=== PATIENT | female | born 1960 | race Caucasian/White ===

== ENCOUNTER 2017-04-03 14:50 | Inpatient (IN) ==
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
[2017-04-03 15:56] LABS: Basophils % 0.2 %; Eosinophils % 0.3 %; Hematocrit 38.1 % (35.3-44.9); Hemoglobin 12.7 g/dL (11.5-15.4); Immature Granulocytes % 0.4 % (0-4); Lymphocytes # 2.1 K/mcL (0.6-4.6); Lymphocytes % 23.7 %; Mean Corpuscular HGB Conc 33.3 g/dL (31.6-35.5); Mean Corpuscular Hemoglobin 29.1 pg (28.0-33.3); Mean Corpuscular Volume 87.2 fL (83.0-100.0); Mean Platelet Volume 8.3 fL (9.4-12.4); Monocytes # 0.8 K/mcL (0.0-1.3); Monocytes % 8.5 %; Platelet Count 295 K/mcL (140-400); Red Blood Count 4.37 M/mcL (3.82-4.97); Red Cell Distribution Width 12.6 % (11.5-14.5); Segmented Neutrophils % 66.9 %
[2017-04-03 16:02] LABS: Prothrombin Time 11.1 Seconds (9.4-12.1)
[2017-04-03 16:05] LABS: Activated Partial Thrombo Time 30.4 Seconds (26.0-36.0)
[2017-04-03 16:10] LABS: Alanine Aminotransferase 34 Units/L (0-55); Albumin 3.9 g/dL (3.5-5.0); Albumin/Globulin Ratio 1.2 (1.1-2.2); Alkaline Phosphatase 58 Units/L (38-126); Aspartate Amino Transferase 34 Units/L (5-34); BUN/Creatinine Ratio 12 (6-26); Bilirubin,Direct 0.1 mg/dL (0.0-0.5); Bilirubin,Indirect 0.2 mg/dL (0.0-1.2); Bilirubin,Total 0.3 mg/dL (0.2-1.2); Blood Urea Nitrogen 10 mg/dL (7-20); Calcium 9.2 mg/dL (8.6-10.8); Carbon Dioxide 28 mEq/L (19-29); Chloride 104 mEq/L (98-109); Globulin 3.3 g/dL (2.4-3.5); Glucose 111 mg/dL (70-99); Osmolality,Calculated 284 (280-300); Potassium 3.7 mEq/L (3.5-4.5); Sodium 137 mEq/L (136-145); Total Protein 7.2 g/dL (6.0-8.3); eGFR For African Americans > 60 (> 60); eGFR For Non-African Americans > 60 (> 60)
[2017-04-03 16:11] LABS: Ethanol < 10 mg/dL (0-10)
[2017-04-03 16:36] LABS: Acetaminophen < 1.0 mcg/mL (10-30); Salicylate < 5.0 mg/dL (15-30); Thyroid Stimulating Hormone 1.895 mcIU/mL (0.350-4.840)
[2017-04-03 17:02] LABS: Bilirubin,Urine Negative (Negative); Blood,Urine Negative (Negative); Clarity,Urine Clear (Clear); Color,Urine Yellow (Yellow); Glucose,Urine (UA) Normal (Normal); Ketones,Urine Negative (Negative); Leukocyte Esterase,Urine Trace (Negative); Nitrite,Urine Negative (Negative); PH,Urine 6.5 pH Units (5.0-8.0); Protein,Urine Negative (Neg-Trace); Specific Gravity,Urine 1.009 (1.010-1.025); Urobilinogen,Urine Normal (Normal)
[2017-04-03 17:03] LABS: Bacteria,Urine None Seen per hpf (None-Few); Hyaline Casts,Urine None Seen per lpf (None-Few); RBC,Urine 0-3 per hpf (0-3); Squamous Epithelial Cell,Urine Moderate per lpf (None-Few); WBC,Urine 0-3 per hpf (0-3)
[2017-04-03 17:05] LABS: Amphetamine Screen,Urine Negative ng/mL (Cutoff=1000); Barbiturate Screen,Urine Negative ng/mL (Cutoff=200); Benzodiazepines Screen,Urine Negative ng/mL (Cutoff=200); Cannabinoid Screen,Urine Negative ng/mL (Cutoff = 50); Cocaine Screen,Urine Negative ng/mL (Cutoff= 300); Opiate Screen,Urine Negative ng/mL (Cutoff=300); Phencyclidine Screen,Urine Negative ng/mL (Cutoff=25)
--- NOTE | 2017-04-03 20:31 | Internal Med History&Physical ---
Date of Encounter: 04/03/17 Time of Encounter: 20:26 Assessment and Plan (1) Altered mental status Current visit: Yes Status: Acute Patient likely had a manic episode in setting of undiagnosed bipolar disorder type I She has been having highs and lows for a long time according to her , but denies any suicidal/homicidal thoughts Although klonopin is listed as home medication, she has only taken it on one occasion; therefore no reason to think withdrawal UDS, Head CT, TSH unremarkable; will obtain B12, folate for further metabolic workup Consult psychiatry, appreciate recommendations Qualifiers: Altered mental status type: unspecified Qualified Code(s): R41.82 - Altered mental status, unspecified (2) Anxiety Current visit: Yes Status: Chronic Will continue home Zoloft and Buspar Not currently taking any benzos (3) Hypertension Current visit: Yes Status: Chronic BP stable upon admission Will continue home anti-hypertensives Qualifiers: Hypertension type: essential hypertension Qualified Code(s): I10 - Essential (primary) hypertension (4) DVT prophylaxis Current visit: Yes Status: Acute Not indicated as she is ambulating and has low risk of DVT Internal Medicine - H&P: HPI Chief complaint: AMS Admitted From: Home Plans for Post Hospital Care: Home History of present illness: Ms. Marquez is a 56 year old female who presents to emergency department with altered mental status. She is accompanied by her , Naif and also her daughter, Mela, who are able to assist in history. The family member say that patient has confused for about 2 weeks. She apparently attended [employer] last Sunday and wandered off for about 36 hour period and only remembers bits of pieces of what happened. She did not answer her cell phone and did not try to contact her family during that time. She eventually called her sister and the patient's son met up with her today. Patient denies any suicidal or homicidal thoughts, but does admit to telling her family to "put the knives away" around her house. Family states that she spent $600 during this period including buying two identical purses, but she is normally financially responsible. believes that patient has several episodes of julia over the past 3 months but has never been formally diagnosed with bipolar disorder. She does have a history of anxiety and her psychiatrist recently increased her dose of Buspar a month ago. Family confirms that she does have periods of highs and lows. Patient denies any chest pain, shortness of breath, headache, nausea, vomiting, hearing voices in her head. Past Med Surg Social Fam HX - Past Medical History Medical history: hypertension Psychiatric history: anxiety - Past Surgical History Surgical History: cholecystectomy, hysterectomy - Social History Smoking Status: Unknown if ever smoked Smokeless Tobacco Status: No Alcohol use: none Drug use: none Internal Medicine - H&P: Meds Bisoprolol/HCTZ 2.5/6.25 [Ziac 2.5/6.25] 1 tab PO DAILY 04/03/17 [History] Buspirone HCl [Buspar] 30 mg PO BID 04/03/17 [History] Quinapril HCl [Accupril] 20 mg PO DAILY 04/03/17 [History] Sertraline [Zoloft] 200 mg PO DAILY 04/03/17 [History] clonazePAM [Klonopin] 0.5 mg PO BID PRN 04/03/17 [History] Allergies No Known Allergies Allergy (Verified 04/03/17 15:08) All Systems PM: A 10-system review of systems was performed and is negative for pertinent findings except as documented above in the HPI. - Constitutional Vitals: Temp Pulse Resp BP Pulse Ox 97.5 F L 57 16 153/78 99 04/03/17 15:09 04/03/17 16:48 04/03/17 18:19 04/03/17 18:19 04/03/17 16:48 Internal Med - H&P Results - Labs CBC & Chem 7: 04/03/17 15:48 04/03/17 15:48
[2017-04-03] MEDS ORDERED: Acetaminophen 325 MG TABLET PO PRN (20:40)
[2017-04-03] MEDS ORDERED: Ondansetron ODT 4 MG TAB.RAPDIS SL PRN (20:40)
[2017-04-03] MEDS ORDERED: Naloxone 0.4 MG/ML INJ IVP PRN (20:40)
[2017-04-04 06:52] LABS: Folate 12.2 ng/mL (7.0-31.4)
[2017-04-04] MEDS: Bisoprolol/HCTZ 2.5/6.25 TABLET PO SCH (08:18)
[2017-04-04] MEDS ORDERED: clonazePAM 0.5 MG TABLET PO PRN (09:21)
--- NOTE | 2017-04-04 10:34 | Neurology - Consult Note ---
Date of Encounter: 04/04/17 Time of Encounter: 10:30 Assessment and Plan (1) Altered mental status Current Visit: Yes Status: Acute Patient developed rather acute onset of mental status changes, with altered behaviors, without focal neurological deficits. Along with some recent findings of mood changes certainly new psychiatric mood disorder is likely. neurologically, what appears striking is significant speech difficulty, mainly in the form of expressive aphasia and inability to complete whole sentence and telling a story. This obviously needs further investigation to make sure there is no organic PIECE PRESSER pathology. The patient has no fever, no headache, no nuchal rigidity and no leucocytosis on CBC with differentials, urine drug screen negative. Will obtain MRI of brain and EEG to rule out PIECE PRESSER pathology, especially rare type of encephalitis, such as anti NMDA antibody encephalitis. But this does not appear to be infectious in etiology. Qualifiers: Altered mental status type: unspecified Qualified Code(s): R41.82 - Altered mental status, unspecified History of Present Illness Chief complaint: Confusion, behavioral changes and speech difficulty HPI: Ms. Marquez is a 56 year old female with PMH significant for HTN, cataracts, stomach ulcer who developed acute onset of behavioral changes, confusion, and speech difficulty. Patient is seen and she apparently is now having speech difficulty. Symptoms have been well documented in the H&P per medical team. Patient is currently wide awake and smiles when talking but clearly has speech difficulty, resembling expressive aphasia. No focal motor weakness. CT of head showed no acute intracranial abnormality. No fever, denies headache, no nuchal rigidity. Past Med Surg Social Fam HX - Past Medical History Medical history: hypertension Psychiatric history: anxiety - Past Surgical History Surgical History: cholecystectomy, hysterectomy - Social History Smoking Status: Unknown if ever smoked Smokeless Tobacco Status: No Alcohol use: none Drug use: none Medications and Allergies Bisoprolol/HCTZ 2.5/6.25 [Ziac 2.5/6.25] 1 tab PO DAILY 04/03/17 [History] Buspirone HCl [Buspar] 30 mg PO BID 04/03/17 [History] Quinapril HCl [Accupril] 20 mg PO DAILY 04/03/17 [History] Sertraline [Zoloft] 200 mg PO DAILY 04/03/17 [History] clonazePAM [Klonopin] 0.5 mg PO BID PRN 07/11/17 [History] Allergies No Known Allergies Allergy (Verified 04/03/17 15:08) All Systems: A 10-system review of systems was performed and is negative for pertinent findings except as documented above in the HPI. Physical Examination - Vital Signs Vital Signs: Initial Vital Signs Temp Pulse Resp BP Pulse Ox 97.5 F L 64 16 142/75 100 04/03/17 15:09 04/03/17 15:09 04/03/17 15:09 04/03/17 15:09 04/03/17 15:09 - Constitutional General appearance: comfortable - Neurologic Sensorimotor examination: other (Grossly intact) Detailed motor examination: full strength in all major muscle groups Motor examination - right side: 55: deltoids, biceps, triceps, wrist flexion, wrist extension, field staff, hip flexors, tibialis Anterior, quadriceps, toe extension (EHL), plantarflexion Motor examination - left side: 55: deltoids, biceps, triceps, wrist flexion, wrist extension, hip flexors, field staff, quadriceps, tibialis Anterior, toe extension (EHL), plantarflexion Detailed sensory examination: other (Grossly intact) Posture: other (NOne) Reflex and gait examination: intact Reflexes: Biceps: 2+, Triceps: 2+, Brachioradialis: 2+, Patella: 2+, Achilles: 2 + Mental Status Examination: awake, alert, oriented to person, oriented to place, follows commands appropriately, opens eyes to noxious stimulation, makes eye contact, follows simple commands, answers questions by nodding yes or no, expressive aphasia (Speech is abnormal, has difficulty completing a whole sentence) Cranial nerve examination: PERRL, EOMI, visual rivers intact, corneal reflexes brisk symmetrically, sensory to face intact, mastication intact, no facial asymmetry is present, no dysarthria (aphasic), hearing is intact symmetrically, soft palate elevates bilaterally upon phonation, gag reflex intact, flexes SCM and trapezius muscles symmetrically with full power, tongue protrudes midline, no atrophy or facial fasiculations present Results - Laboratory Findings CBC and BMP: 04/03/17 15:48 04/03/17 15:48 Abnormal lab findings: Abnormal lab results MPV 8.3 fL (9.4-12.4) L 04/03/17 15:48 Immature Plt Fraction 1.0 % (1.1-6.1) L 04/03/17 15:48 Glucose 111 mg/dL (70-99) H 04/03/17 15:48 Ur Specific [place] 1.009 (1.010-1.025) L 04/03/17 16:48 Ur Leukocyte Esterase Trace (Negative) H 04/03/17 16:48 Ur Squamous Epith Cells Moderate per lpf (None-Few) H 04/03/17 16:48 Ur Culture Indicated? YES (NO) A 04/03/17 16:48 Salicylates < 5.0 mg/dL (15-30) L 04/03/17 15:48 Acetaminophen < 1.0 mcg/mL (10-30) L 04/03/17 15:48 Consult Discharge Plan - Plan Referrals: NO,PCP [Primary Care Provider] -
--- NOTE | 2017-04-04 11:31 | Electrocardiograph Report ---
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
[2017-04-04] MEDS ORDERED: *HR* LORazepam 1 MG TABLET PO ONE (11:37)
--- NOTE | 2017-04-04 15:12 | Consult Note ---
Date of Encounter: 04/04/17 Time of Encounter: 15:03 Assessment & Recommendation (1) Altered mental status Current visit: Yes Status: Acute Assessment & Recommendation: Client has a very unusual presentation for Bipolar Disorder but it cannot be ruled out at this time. Family describes a history of subsyndromal Bipolar symptoms but nothing that really accounts for her current presentation. She takes mental health medications for anxiety. However, if she has a genuine Bipolar illness they are likely not very effective and may actually be precipitating more manic type symptoms. I am a little concerned about her word finding difficulty/expressive type aphasia. That is not consistent with Bipolar Disorder. Her family also describes a slow deterioration in her cognitive abilities over the last year and a half. It sounds like she was fired from her job for disorganization and memory problems. I would continue her medical work-up and follow-up on any recommendations from Neurology as a progressive dementia is certainly a possibility. If nothing turns up would recommend an inpatient psych admission to treat her for possible Bipolar illness with hopefully some resolution of her clinical picture. Qualifiers: Altered mental status type: unspecified Qualified Code(s): R41.82 - Altered mental status, unspecified History of Present Illness Requesting Physician: Jyoti Gomez MD Reason for consult: mental status change History of present illness: Ms. Marquez is a 56 year old female who was admitted secondary to a mental status change. According to her family she took off and no one knew where she was for a few days. According to her she has done this in the past when they have fought but that she has always returned home and maintained contact with her children while gone. This time she did not communicate with anyone. Family reported she made charges to the [employer] cards while gone which is unlike her. Family is questioning whether or not she might have Bipolar Disorder. They describe symptoms over the years that can be consistent with Bipolar Disorder but her presentation is not clear cut. Family describes periods of subsyndromal manic symptoms but no depressive episodes, no psychosis , and no mental health issues that have warranted hospitalization in the past. 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 She apparently was becoming more disorganized and forgetful at work. Highly anxious as well. Linked with an outpatient psychiatrist a little over a year ago secondary to anxiety. Treated with Zoloft and Buspar which she takes currently. Has never been managed for Bipolar Disorder. On exam she is not demonstrating any gloria manic or depressive symptoms at this time. She is demonstrating thought blocking/word finding difficulties similar to an expressive aphasia. However, medical work- up has been negative thus far. CC: Jyoti Gomez MD Past Med Surg Social Fam HX - Past Medical History Medical history: hypertension - Past Psychiatric History Psychiatric history: Reports: anxiety Family psychiatric history: No Family History of Suicide: None - Past Surgical History Surgical History: cholecystectomy, hysterectomy - Social History Smoking Status: Unknown if ever smoked Smokeless Tobacco Status: No Alcohol use: none Drug use: none Medications & Allergies Bisoprolol/HCTZ 2.5/6.25 [Ziac 2.5/6.25] 1 tab PO DAILY 04/03/17 [History] Buspirone HCl [Buspar] 30 mg PO BID 04/03/17 [History] Quinapril HCl [Accupril] 20 mg PO DAILY 04/03/17 [History] Sertraline [Zoloft] 200 mg PO DAILY 04/03/17 [History] clonazePAM [Klonopin] 0.5 mg PO BID PRN 04/03/17 [History] Allergies No Known Allergies Allergy (Verified 04/03/17 15:08) Review of Systems Constitutional: Denies: fever, chills, weakness, weight change Eyes: Denies: eye pain, vision change Ears, Nose, Throat: Denies: ear pain, throat pain, dental pain, hearing loss, congestion Cardiovascular: Denies: chest pain, palpitations, dyspnea on exertion Respiratory: Denies: cough, dyspnea, wheezes Gastrointestinal: Denies: abdominal pain, nausea, vomiting, diarrhea, constipation Genitourinary male: Denies: urgency, dysuria, frequency, genital lesions Genitourinary female: Denies: urgency, dysuria, frequency, abnormal menses, dyspareunia Musculoskeletal: Denies: joint swelling, joint pain Integumentary: Denies: rash, lesions, pruritus Neurological: Reports: confusion, memory loss Endocrine: Denies: fatigue, heat or cold intolerance Hematologic/Lymphatic: Denies: easy bruising, lymphadenopathy Allergic/Immunologic: Denies: urticaria, itchy eyes Mental Status Exam Patient orientation: Yes Person, Yes Place Level of alertness: Alert Patient appearance: Appropriate Behavior: calm Psychomotor activity: Normal Eye contact: Maintains Eye Contact Mood description: Anxious Affect description: congruent with mood Speech volume: Soft/Quiet Thought process: Thought Blocking Thought content: No Suicidal ideation, No Homicidal ideation, No Overt delusions Perceptual disturbances: No Reacting to internal stimuli Attention span: Unable to Focus, Unable to Sustain Attention Memory description: Immediate Impaired, Recent Impaired, Remote Impaired Patient reliability: Not Reliable Historian Intelligence estimate: Average Judgment: Limited Insight: Minimal Results - Vital Signs Vital signs: Temp Pulse Resp BP Pulse Ox 97.3 F L 52 12 184/84 99 04/04/17 06:39 04/04/17 06:39 04/04/17 06:39 04/04/17 06:39 04/04/17 06:39 - Labs Labs: Laboratory Last Values WBC 8.9 K/mcL (4.3-11.1) 04/03/17 15:48 RBC 4.37 M/mcL (3.82-4.97) 04/03/17 15:48 Hgb 12.7 g/dL (11.5-15.4) 04/03/17 15:48 Hct 38.1 % (35.3-44.9) 04/03/17 15:48 MCV 87.2 fL (83.0-100.0) 04/03/17 15:48 MCH 29.1 pg (28.0-33.3) 04/03/17 15:48 MCHC 33.3 g/dL (31.6-35.5) 04/03/17 15:48 RDW 12.6 % (11.5-14.5) 04/03/17 15:48 Plt Count 295 K/mcL (140-400) 04/03/17 15:48 MPV 8.3 fL (9.4-12.4) L 04/03/17 15:48 Immature Gran % 0.4 % (0-4) 04/03/17 15:48 Seg Neutrophils % 66.9 % 04/03/17 15:48 Lymphocytes % 23.7 % 04/03/17 15:48 Monocytes % 8.5 % 04/03/17 15:48 Eosinophils % 0.3 % 04/03/17 15:48 Basophils % 0.2 % 04/03/17 15:48 Neutrophils # 6.0 K/mcL (1.6-8.9) 04/03/17 15:48 Lymphocytes # 2.1 K/mcL (0.6-4.6) 04/03/17 15:48 Monocytes # 0.8 K/mcL (0.0-1.3) 04/03/17 15:48 Eosinophils # 0.0 K/mcL (0.0-0.6) 04/03/17 15:48 Basophils # 0.0 K/mcL (0.0-0.2) 04/03/17 15:48 Immature Plt Fraction 1.0 % (1.1-6.1) L 04/03/17 15:48 PT 11.1 Seconds (9.4-12.1) 04/03/17 15:48 INR 1.0 04/03/17 15:48 APTT 30.4 Seconds (26.0-36.0) 04/03/17 15:48 Sodium 137 mEq/L (136-145) 04/03/17 15:48 Potassium 3.7 mEq/L (3.5-4.5) 04/03/17 15:48 Chloride 104 mEq/L (98-109) 04/03/17 15:48 Carbon Dioxide 28 mEq/L (19-29) 04/03/17 15:48 BUN 10 mg/dL (7-20) 04/03/17 15:48 Creatinine 0.85 mg/dL (0.57-1.11) 04/03/17 15:48 Est GFR ( Amer) > 60 (> 60) 04/03/17 15:48 Est GFR (Non-Af Amer) > 60 (> 60) 04/03/17 15:48 BUN/Creatinine Ratio 12 (6-26) 04/03/17 15:48 Glucose 111 mg/dL (70-99) H 04/03/17 15:48 Calculated Osmolality 284 (280-300) 04/03/17 15:48 Calcium 9.2 mg/dL (8.6-10.8) 04/03/17 15:48 Total Bilirubin 0.3 mg/dL (0.2-1.2) 04/03/17 15:48 Direct Bilirubin 0.1 mg/dL (0.0-0.5) 04/03/17 15:48 Indirect Bilirubin 0.2 mg/dL (0.0-1.2) 04/03/17 15:48 AST 34 Units/L (5-34) 04/03/17 15:48 ALT 34 Units/L (0-55) 04/03/17 15:48 Alkaline Phosphatase 58 Units/L (38-126) 04/03/17 15:48 Troponin I 0.00 ng/mL (0-0.03) 04/03/17 15:48 Serum Total Protein 7.2 g/dL (6.0-8.3) 04/03/17 15:48 Albumin 3.9 g/dL (3.5-5.0) 04/03/17 15:48 Globulin 3.3 g/dL (2.4-3.5) 04/03/17 15:48 Albumin/Globulin Ratio 1.2 (1.1-2.2) 04/03/17 15:48 Vitamin B12 451 pg/mL (213-816) 04/04/17 05:00 Folate 12.2 ng/mL (7.0-31.4) 04/04/17 05:00 TSH 1.895 mcIU/mL (0.350-4.840) 04/03/17 15:48 Urine Color Yellow (Yellow) 04/03/17 16:48 Urine Clarity Clear (Clear) 04/03/17 16:48 Urine pH 6.5 pH Units (5.0-8.0) 04/03/17 16:48 Ur Specific [place] 1.009 (1.010-1.025) L 04/03/17 16:48 Urine Protein Negative mg/dL (Neg-Trace) 04/03/17 16:48 Urine Glucose (UA) Normal mg/dL (Normal) 04/03/17 16:48 Urine Ketones Negative mg/dL (Negative) 04/03/17 16:48 Urine Blood Negative (Negative) 04/03/17 16:48 Urine Nitrite Negative (Negative) 04/03/17 16:48 Urine Bilirubin Negative (Negative) 04/03/17 16:48 Urine Urobilinogen Normal mg/dL (Normal) 04/03/17 16:48 Ur Leukocyte Esterase Trace (Negative) H 04/03/17 16:48 Urine Microscopic RBC 0-3 per hpf (0-3) 04/03/17 16:48 Urine Microscopic WBC 0-3 per hpf (0-3) 04/03/17 16:48 Ur Squamous Epith Cells Moderate per lpf (None-Few) H 04/03/17 16:48 Urine Bacteria None Seen per hpf (None-Few) 04/03/17 16:48 Hyaline Casts None Seen per lpf (None-Few) 04/03/17 16:48 Ur Culture Indicated? YES (NO) A 04/03/17 16:48 Salicylates < 5.0 mg/dL (15-30) L 04/03/17 15:48 Urine Opiates Screen Negative ng/mL (Qajnuo=771) 04/03/17 16:51 Acetaminophen < 1.0 mcg/mL (10-30) L 04/03/17 15:48 Ur Barbiturates Screen Negative ng/mL (Gftyer=253) 04/03/17 16:51 Ur Phencyclidine Scrn Negative ng/mL (Cutoff=25) 04/03/17 16:51 Ur Amphetamines Screen Negative ng/mL (Gvzyoi=4105) 04/03/17 16:51 U Benzodiazepines Scrn Negative ng/mL (Okyrlq=613) 04/03/17 16:51 Urine Cocaine Screen Negative ng/mL (Cutoff= 300) 04/03/17 16:51 U Marijuana (THC) Screen Negative ng/mL (Cutoff = 50) 04/03/17 16:51 Ethyl Alcohol < 10 mg/dL (0-10) 04/03/17 15:48 - Impressions Impressions Brain MRI 04/04/17 09:22 IMPRESSION: Motion artifact degrades the images. Mild cerebral atrophy. No acute brain parenchymal abnormality. D/ / 04/04/2017 13:20:52 Sima Edward MD / Katalina San Interpreting Provider: Sima Edward MD Consult Discharge Plan - Plan Referrals: NO,PCP [Primary Care Provider] -
--- NOTE | 2017-04-04 17:16 | Internal Med Progress Note ---
Date of Encounter: 04/04/17 Time of Encounter: 11:00 - Assessment and plan (1) Altered mental status Current Visit: Yes Status: Acute Assessment and plan: her delirum / AMS mostly due to Bipolar however still need to r/o any organic cause agree with obtaining MRI of brain and EEG Neuro is on board Reviewed MRI results.. no acute changes Cont supportive and symptomatic care talked to the family at bed side and explained to them about current care Qualifiers: Altered mental status type: unspecified Qualified Code(s): R41.82 - Altered mental status, unspecified (2) Bipolar 1 disorder, manic, moderate Current Visit: Yes Status: Acute Assessment and plan: Her current maniac / mild psychotic behavior is due to her Bipolar problem may need to transfer to in Pt psych unit will talk to psychiatrist in AM mean while cont her home psych meds also cont clonopine (3) Anxiety Current Visit: Yes Status: Chronic Assessment and plan: cont BZD (4) Hypertension Current Visit: Yes Status: Chronic Assessment and plan: slightly elevated due to anxiety resumed all home meds inc Lisinopril to 20mg will use hydralazine 5mg IV PRN if her SBP > 160 constantly Qualifiers: Hypertension type: essential hypertension Qualified Code(s): I10 - Essential (primary) hypertension - Subjective Interval history: This is a 56 y/o F with known PMH of HTN and severe Bipolar who has been following psychiatrist Dr. Maryanne Lima actively, now she was broght into ER last nigh by family stating that from last 2 wees she is more confused with some short term memory loss and severe maniac episodes. When I examined the pt she was still maniac, and have flight of ideas ,however she is alert, awake and O x 3. Denied any CP / SOB - Constitutional Vitals: Temp Pulse Resp BP Pulse Ox 97.7 F 59 14 133/82 99 04/04/17 16:18 04/04/17 16:18 04/04/17 16:18 04/04/17 16:18 04/04/17 16:18 General appearance: Present: A&O X 3 - Respiratory Respiratory exam: Present: CTAB. Absent: accessory muscle use, rales, rhonchi, wheezes - Cardiovascular Cardiovascular exam: Present: RRR, +S1, +S2. Absent: diastolic murmur, gallop, rubs, systolic murmur - GI/Abdominal GI/Abdominal exam: Present: normal bowel sounds, soft, no peritoneal signs. Absent: distended, tenderness - Extremities Exam Extremities exam: Absent: pedal edema, tenderness - Neurological Exam Neurological exam: Present: CN II-XII intact, oriented X3, no focal deficits. Absent: pronater drift, facial droop, speech deficit - Psychiatric Psychiatric exam: Present: anxious, manic. Absent: suicidal ideation Additional comments: no hallucinations / delusions Internal Medicine: Result - Labs CBC & Chem 7: 04/03/17 15:48 04/03/17 15:48 - ABG Interpretation ABG results: PT/INR, D-dimer PT 11.1 Seconds (9.4-12.1) 04/03/17 15:48 - Impressions Impressions Brain MRI 04/04/17 09:22 IMPRESSION: Motion artifact degrades the images. Mild cerebral atrophy. No acute brain parenchymal abnormality. D/ / 04/04/2017 13:20:52 Sima Edward MD / Katalina San Interpreting Provider: Sima Edward MD Consult Discharge Plan - Plan Referrals: NO,PCP [Primary Care Provider] -
--- NOTE | 2017-04-04 21:19 | EEG/EMG/Oth Biometrics Report ---
EEG Procedure Report Date of procedure: 04/04/17 EEG Procedure: Routine EEG Procedure Note: History: This is a 56 year old woman who is undergoing an EEG to evaluate possible seizure disorder. Medication: no anticonvulsants listed. Report: This EEG was acquired with standard international 10-20 electrode placement system with EKG recording. The Background activity during this EEG was characterized by the presence of persistent stage 2 sleep, right from the beginning of the recording. Sleep stages were characterized by the presence of background fragmentation, vertex waves, K-complexes and sleep spindles. There are no electrographic seizures identified during this tracing. There are no epileptiform discharges and focal slowing noted during this recording. Photic stimulation produced no abnormalities. HV procedure not performed. EKG tracing showed no significant cardiac dysarrhythmia. Impression: This is a normal asleep EEG. Clinical Correlation: Normal EEGs, however, do not exclude epilepsy. Clinical correlation required.
[2017-04-05] MEDS: Lactobacillus 1 EACH CAP.SPRINK PO SCH ×3 (05:39→21:20)
[2017-04-05] MEDS: Amoxicillin 500 MG CAPSULE PO SCH ×4 (05:40→21:20)
[2017-04-05] MEDS: Bisoprolol/HCTZ 2.5/6.25 TABLET PO SCH (08:26)
--- NOTE | 2017-04-05 16:27 | Internal Med Progress Note ---
Date of Encounter: 04/05/17 Time of Encounter: 16:25 - Assessment and plan (1) Altered mental status Current Visit: Yes Status: Acute Assessment and plan: her delirum / AMS mostly due to Bipolar however still need to r/o any organic cause Reviewed MRI fo brin - no acute CVA Her EEG - did not show any active epileptic changes Neuro is on board Cont supportive and symptomatic care talked to the family at bed side and explained to them about current care Patient does need to stay in the hospital more than 2 midnights due to her complex medical problems. So we will change her to full admission today. I did review pt's PMH and PSH mentioned in HPI.. FH - reviewed ,no psych problmes in the family as per pt. Social : denied any smoking / alcohol / drugs. Reviewed all the medications and allergies. Also reviewed all the systems, everything is benign except the systems and symptoms I mentioned in HPI. Qualifiers: Altered mental status type: unspecified Qualified Code(s): R41.82 - Altered mental status, unspecified (2) Bipolar 1 disorder, manic, moderate Current Visit: Yes Status: Acute Assessment and plan: Her current maniac / mild psychotic behavior is due to her Bipolar problem She may need to transfer to in Pt psych unit apparently they do not have any beds available for today at our facility will talk to psychiatrist about further plan of care mean while cont her home psych meds also cont Klonopin (3) Anxiety Current Visit: Yes Status: Chronic Assessment and plan: cont BZD (4) Hypertension Current Visit: Yes Status: Chronic Assessment and plan: Stable with current regimen Qualifiers: Hypertension type: essential hypertension Qualified Code(s): I10 - Essential (primary) hypertension - Subjective Interval history: This is a 56 y/o F with known PMH of HTN and severe Bipolar who has been following psychiatrist Dr. Maryanne Lima actively, now she was broght into ER last nigh by family stating that from last 2 wees she is more confused with some short term memory loss and severe maniac episodes. When I examined the pt she was still maniac, and have flight of ideas ,however she is alert, awake and O x 3. But over all looks little better today. Did mention that she slept well last night. Denied any hallucinations and delusions. Denied any CP / SOB - Constitutional Vitals: Temp Pulse Resp BP Pulse Ox 97.9 F 58 18 115/71 99 04/05/17 15:41 04/05/17 15:41 04/05/17 15:41 04/05/17 15:41 04/05/17 15:41 General appearance: Present: A&O X 3 - Respiratory Respiratory exam: Present: CTAB. Absent: accessory muscle use, rales, rhonchi, wheezes - Cardiovascular Cardiovascular exam: Present: RRR, +S1, +S2. Absent: diastolic murmur, gallop, rubs, systolic murmur - GI/Abdominal GI/Abdominal exam: Present: normal bowel sounds, soft, no peritoneal signs. Absent: distended, tenderness - Neurological Exam Neurological exam: Present: alert, CN II-XII intact, oriented X3, reflexes normal, no focal deficits, strengths equal and symetr throughout. Absent: speech deficit - Psychiatric Psychiatric exam: Present: anxious, manic. Absent: suicidal ideation Internal Medicine: Result - Labs CBC & Chem 7: 04/03/17 15:48 04/03/17 15:48 - ABG Interpretation ABG results: PT/INR, D-dimer PT 11.1 Seconds (9.4-12.1) 04/03/17 15:48 Consult Discharge Plan - Plan Referrals: NO,PCP [Primary Care Provider] -
--- NOTE | 2017-04-05 19:00 | Neurology Progress Note ---
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 Neurologically, with normal MRI of brain, normal EEG the possibility of encephalitis, or subclinical partial epileptic status will be unlikely. One possibility of a neurological disorder that could be mimicking such presentation would be transient global amnesia, which usually occur in older than her patient population. TGA is usually a clinical diagnosis of exclusion and usually ran a course of less than 24 hours with good recovery. TGA is usually considered a benign phenomenon and usually do not require treatment. At this time, will recommend no further testing from neurology perspective. Will watch her overnight and see how she does. Qualifiers: Altered mental status type: unspecified Qualified Code(s): R41.82 - Altered mental status, unspecified Subjective Principal diagnosis: Altered mental status Interval history: Patient seen and examined. Patient completed EEG which showed normal asleep EEG with very organized stage II sleep rhythm. MRI of brain reviewed and returned essential normal study. Today the patient seems to be doing a lot better, in terms of her speech fluency and thought process. She is able to tell me quite complicated story and tried explain whether some of the events she has had in the past 3-4 years could be the stressors that could be leading to this. I hear no significant delusional thoughts at present time. Objective - Constitutional Vitals: Temp Pulse Resp BP Pulse Ox 97.9 F 58 18 115/71 99 04/05/17 15:41 04/05/17 15:41 04/05/17 15:41 04/05/17 15:41 04/05/17 15:41 - Neurological Exam Sensorimotor examination: Present: other (Grossly intact) Motor Examination: Present: full strength in all major muscle groups Motor examination - right side: 5/5: deltoids, biceps, triceps, wrist flexion, wrist extension, senior product development scientist, hip flexors, tibialis Anterior, quadriceps, toe extension (EHL), plantarflexion Motor examination - left side: 5/5: deltoids, biceps, triceps, wrist flexion, wrist extension, hip flexors, senior product development scientist, quadriceps, tibialis Anterior, toe extension (EHL), plantarflexion Sensation intact: Present: other (Grossly intact) Posture: Present: other (NOne) Reflex and gait examination: intact Reflexes: Biceps: 1+, Triceps: 1+, Brachioradialis: 1+, Patella: 1+, Achilles: 1 + Mental Status Examination: Present: awake, alert, oriented to person, oriented to place, follows commands appropriately, answers questions appropriately, no agnosia, no aphasia, no aproxia, opens eyes to noxious stimulation, makes eye contact, follows simple commands, answers questions by nodding yes or no Cranial nerve examination: Present: PERRL, EOMI, visual rivers intact, corneal reflexes brisk symmetrically, sensory to face intact, mastication intact, no facial asymmetry is present, no dysarthria, hearing is intact symmetrically, soft palate elevates bilaterally upon phonation, gag reflex intact, flexes SCM and trapezius muscles symmetrically with full power, tongue protrudes midline, no atrophy or facial fasiculations present Results - Laboratory Findings CBC and BMP: 04/03/17 15:48 04/03/17 15:48 Abnormal lab findings: Abnormal lab results MPV 8.3 fL (9.4-12.4) L 04/03/17 15:48 Immature Plt Fraction 1.0 % (1.1-6.1) L 04/03/17 15:48 Glucose 111 mg/dL (70-99) H 04/03/17 15:48 Ur Specific [place] 1.009 (1.010-1.025) L 04/03/17 16:48 Ur Leukocyte Esterase Trace (Negative) H 04/03/17 16:48 Ur Squamous Epith Cells Moderate per lpf (None-Few) H 04/03/17 16:48 Ur Culture Indicated? YES (NO) A 04/03/17 16:48 Salicylates < 5.0 mg/dL (15-30) L 04/03/17 15:48 Acetaminophen < 1.0 mcg/mL (10-30) L 04/03/17 15:48 Consult Discharge Plan - Plan Referrals: NO,PCP [Primary Care Provider] -
[2017-04-06] MEDS: Amoxicillin 500 MG CAPSULE PO SCH ×2 (05:07→14:12)
[2017-04-06] MEDS: Bisoprolol/HCTZ 2.5/6.25 TABLET PO SCH (09:02)
[2017-04-06] MEDS: Lactobacillus 1 EACH CAP.SPRINK PO SCH (09:02)
--- NOTE | 2017-04-06 09:06 | Discharge Summary ---
Date of Encounter: 04/06/17 Time of Encounter: 08:57 - Discharge Diagnosis (1) Altered mental status Priority: Primary Status: Acute Qualifiers: Altered mental status type: unspecified Qualified Code(s): R41.82 - Altered mental status, unspecified (2) Bipolar 1 disorder, manic, moderate Priority: Primary Status: Acute (3) Anxiety Priority: Secondary Status: Chronic (4) UTI (urinary tract infection), uncomplicated Priority: Secondary Status: Acute (5) Hypertension Priority: Secondary Status: Chronic Qualifiers: Hypertension type: essential hypertension Qualified Code(s): I10 - Essential (primary) hypertension - Discharge Medications Home Medications: Bisoprolol/HCTZ 2.5/6.25 [Ziac 2.5/6.25] 1 tab PO DAILY 04/03/17 [History] Buspirone HCl [Buspar] 30 mg PO BID 04/03/17 [History] Quinapril HCl [Accupril] 20 mg PO DAILY 04/03/17 [History] Sertraline [Zoloft] 200 mg PO DAILY 04/03/17 [History] clonazePAM [Klonopin] 0.5 mg PO BID PRN 04/03/17 [History] Acetaminophen [Tylenol] 650 mg PO Q6HR PRN tab 04/06/17 [Rx] Amoxicillin [Amoxil] 500 mg PO Q8H 3 Days 04/06/17 [Rx] Docusate [Colace] 100 mg PO BID PRN 04/06/17 [Rx] Allergies/Adverse Reactions: Allergies No Known Allergies Allergy (Verified 04/03/17 15:08) Date of admission: 04/05/17 16:39 Primary care physician: PCP NO Anticipated date of discharge: 04/06/17 - Patient Status Disposition: Transfer Psychiatric Hosp Condition: Fair - Discharge Instructions Follow Up With: NO,PCP [Primary Care Provider] - Hospital course: Ms. Marquez is a 56 y/o F with known PMH of HTN and severe Bipolar who has been following psychiatrist Dr. Maryanne Lima actively, now she was brought into ER last nigh by family stating that from last 2 wees she is more confused with some short term memory loss and severe maniac episodes. Pt was admitted in the hospital and continued close monitoring with neuro check and symptomatic care. Neurologist and psychiatrist did evaluated the pt too. Did MRI of Brain and EEG to r/o any rare encephalitis and organic cause. So far all the work up came back as negative. Pt was also continued on her regular psych medications along with Clonopin. Her symptoms started improving slowly. However she still has maniac episodes and flight of ideas, at this point psychiatrist Dr. Valiente agreed that she may get benefit with in patient psychiatric admission. Since pt is medically stable, will transfer her to in patient psych unit in a stable condition today. - Time Spent with Patient Total time spent providing and/or coordinating discharge services: - Constitutional Vitals: Temp Pulse Resp BP Pulse Ox 97.9 F 57 20 152/95 98 04/06/17 07:26 04/06/17 07:26 04/06/17 07:26 04/06/17 07:26 04/06/17 07:26 General appearance: Present: cooperative, A&O X 3, no acute distress - Respiratory Respiratory exam: Present: CTAB. Absent: accessory muscle use, rales, rhonchi, wheezes - Cardiovascular Cardiovascular exam: Present: RRR, +S1, +S2. Absent: diastolic murmur, gallop, rubs, systolic murmur - Neurological Exam Neurological exam: Present: CN II-XII intact, oriented X3, reflexes normal. Absent: facial droop, speech deficit - Psychiatric Psychiatric exam: Present: anxious, manic. Absent: suicidal ideation
[2017-04-06 10:32] VITALS: BP 125/85
== END 2017-04-06 14:52 | disposition home or self-care (01) | DRG 885 ==
LOC: EMEROO 14:50 → 3ANU 14:50
PROVIDERS: ADMIT Family Medicine; ATTEND Family Medicine

== ENCOUNTER 2017-04-06 15:03 | Inpatient (IN) ==
[2017-04-06] MEDS ORDERED: Haloperidol Lactate 5 MG/ML VIAL IM PRN (17:05)
[2017-04-06] MEDS ORDERED: *HR* LORazepam 2 MG/ML VIAL IM PRN (17:05)
[2017-04-06] MEDS ORDERED: MOM Conc 10 ML UD.LIQ PO PRN (17:05)
[2017-04-06] MEDS ORDERED: hydrOXYzine pamoate 25 MG CAPSULE PO PRN (17:05)
[2017-04-06] MEDS ORDERED: Mag Hydrox/Al Hydrox/Simeth 30 ML UDC PO PRN (17:05)
[2017-04-06] MEDS ORDERED: Ibuprofen 400 MG TABLET PO PRN (17:05)
[2017-04-06] MEDS ORDERED: *HR* LORazepam 1 MG TABLET PO PRN (17:05)
[2017-04-06] MEDS ORDERED: Acetaminophen 325 MG TABLET PO PRN (17:07)
[2017-04-06] MEDS ORDERED: clonazePAM 0.5 MG TABLET PO PRN (17:07)
[2017-04-06] MEDS ORDERED: traZODone 50 MG TABLET PO PRN (21:00)
[2017-04-06] MEDS: Amoxicillin 500 MG CAPSULE PO SCH (21:13)
[2017-04-07] MEDS: Amoxicillin 500 MG CAPSULE PO SCH ×3 (06:54→22:13)
[2017-04-07] MEDS: Bisoprolol/HCTZ 2.5/6.25 TABLET PO SCH (09:39)
[2017-04-07] MEDS: Lisinopril 20 MG TABLET PO SCH (09:39)
--- NOTE | 2017-04-07 11:14 | Psychiatry History & Physical ---
Date of Encounter: 04/07/17 Time of Encounter: 10:48 History of Present Illness Patient Stated Chief Complaint: altered mental status Medicare Admission Attestation: For traditional Medicare patients the provided hospital inpatient services are reasonable and necessary and in the case of services not specified as inpatient -only under 42 CFR 419.22 (n), that they are appropriately provided as inpatient services in accordance 42 CFR 412.3. For Critical Access Hospital the patient may reasonably be expected to be discharged or transferred to a hospital within 96 hours after admission to the Critical Access Hospital. Admitted From: Home Plans for Post Hospital Care: Home History of Present Illness: Ms. Marquez is a 56 year old female who was admitted to a medical floor after she disappeared for a couple of days and her family could not account for her whereabouts. Medical work-up negative for anything of concern. After talking with family it sounds like client may have demonstrated symptoms of Bipolar Disorder in the past but nothing that warranted inpatient hospitalization. However, there is also some concern for a possible dementia. 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 Client attributes these problems to anxiety. On exam she is pleasant but unable to organize her thoughts. She has thought blocking and tangentiality. She cannot get through a story. Digresses easily. Also easily tearful. Could be having a psychotic depression but it is too soon to tell. Already takes high dose Zoloft. Agreeable to adding low dose Risperdal. If her thinking clears then an accurate diagnosis may become more apparent. Past Med Surg Social Fam HX - Past Medical History Medical history: hypertension - Past Psychiatric History Psychiatric history: Reports: anxiety Family psychiatric history: Unknown Family History of Suicide: Unknown - Past Surgical History Surgical History: cholecystectomy, hysterectomy - Social History Smoking Status: Unknown if ever smoked Smokeless Tobacco Status: No Alcohol use: none Drug use: none Medications & Allergies Bisoprolol/HCTZ 2.5/6.25 [Ziac 2.5/6.25] 1 tab PO DAILY 04/03/17 [History] Buspirone HCl [Buspar] 30 mg PO BID 04/03/17 [History] Quinapril HCl [Accupril] 20 mg PO DAILY 04/03/17 [History] Sertraline [Zoloft] 200 mg PO DAILY 04/03/17 [History] clonazePAM [Klonopin] 0.5 mg PO BID PRN 04/03/17 [History] Acetaminophen [Tylenol] 650 mg PO Q6HR PRN tab 04/06/17 [Rx] Amoxicillin [Amoxil] 500 mg PO Q8H 3 Days 04/06/17 [Rx] Docusate [Colace] 100 mg PO BID PRN 04/06/17 [Rx] Allergies No Known Allergies Allergy (Verified 04/03/17 15:08) Review of Systems Constitutional: Denies: fever, chills, weakness, weight change Eyes: Denies: eye pain, vision change Ears, Nose, Throat: Denies: ear pain, throat pain, dental pain, hearing loss, congestion Cardiovascular: Denies: chest pain, palpitations, dyspnea on exertion Respiratory: Denies: cough, dyspnea, wheezes Gastrointestinal: Denies: abdominal pain, nausea, vomiting, diarrhea, constipation Genitourinary male: Denies: urgency, dysuria, frequency, genital lesions Genitourinary female: Denies: urgency, dysuria, frequency, abnormal menses, dyspareunia Musculoskeletal: Denies: joint swelling, joint pain Integumentary: Denies: rash, lesions, pruritus Neurological: Denies: headache, weakness, numbness, memory loss Endocrine: Denies: fatigue, heat or cold intolerance Hematologic/Lymphatic: Denies: easy bruising, lymphadenopathy Allergic/Immunologic: Denies: urticaria, itchy eyes Mental Status Exam Patient orientation: Yes Person, Yes Time, Yes Place Level of alertness: Alert Patient appearance: Appropriate, Well Groomed Behavior: anxious Psychomotor activity: Normal Eye contact: Maintains Eye Contact Mood description: Anxious Affect description: congruent with mood, tearful Speech pattern: Normal rate, Normal rhythm, Normal tone Speech volume: Soft/Quiet Thought process: Tangential, Disorganized Thought content: No Suicidal ideation, No Homicidal ideation, No Overt delusions Perceptual disturbances: No Auditory hallucinations, No Visual hallucinations Attention span: Capable of Focused Attention Memory description: Recent Impaired Patient reliability: Questionable Historian Intelligence estimate: Average Judgment: Fair Insight: Partial Exam - HEENT Head exam IM: Present: normal inspection Eye exam IM: Present: EOMI - Neurological Neurological exam IM: Present: alert, oriented X3 - Respiratory Respiratory exam IM: Present: CTAB - GI/Abdominal GI/Abdominal exam IM: Present: normal bowel sounds - Extremities Extremities exam IM: Present: full ROM - Skin Skin exam IM: Present: normal color Results - Vital Signs Vital signs: Temp Pulse Resp BP 98.3 F 63 14 132/71 04/06/17 21:00 04/06/17 21:00 04/06/17 21:00 04/06/17 21:00 Assessment and Plan (1) Altered mental status Current visit: No Status: Acute Plan: Admit inpatient for safety and stabilization, Close observation, Suicide Precautions per unit protocol, Encourage participation in unit milieu, Group Therapy, Monitor sleep, Monitor appetite Risks, benefits, side effects, alternatives discussed w/pt: Yes Patient agreeable to treatment: Yes Plans for Post Hospital Care: Home Estimated Length of Stay (Days): 4 Qualifiers: Altered mental status type: unspecified Qualified Code(s): R41.82 - Altered mental status, unspecified
[2017-04-07] MEDS: risperiDONE 0.25 MG TABLET PO SCH ×2 (11:15→21:21)
[2017-04-08] MEDS: Amoxicillin 500 MG CAPSULE PO SCH ×3 (06:36→21:05)
--- NOTE | 2017-04-08 08:05 | Psychiatry Progress Note ---
Date of Encounter: 04/08/17 Time of Encounter: 08:00 Subjective Interval history: Looks a little better. Thoughts are less scattered. Still some thought blocking but less so. Only prescribed Risperdal 0.5mg BID. Sensitive to medications so want to go slow but it seems like it is helping. Client reported she is taking an antibiotic for a UTI. Wondered how that may be effecting her thinking. Discussed how urinary tract infections can have a big impact on someone's clinical presentation. However, some of her issues are longstanding. 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 Current outpatient provider very far from her-reports she drives three hours to see him. Discussed speaking with hospital social worker in AM to try and arrange follow- up closer to home. Also asked her to have /family visit to provide feedback to staff about how she is doing. Review of Systems Constitutional: Denies: fever, chills, weakness, weight change Eyes: Denies: eye pain, vision change Ears, Nose, Throat: Denies: ear pain, throat pain, dental pain, hearing loss, congestion Cardiovascular: Denies: chest pain, palpitations, dyspnea on exertion Respiratory: Denies: cough, dyspnea, wheezes Gastrointestinal: Denies: abdominal pain, nausea, vomiting, diarrhea, constipation Musculoskeletal: Denies: joint swelling, joint pain Neurological: Denies: headache, weakness, numbness, memory loss Objective: Exam Patient orientation: Yes Person, Yes Time, Yes Place Level of alertness: Alert Patient appearance: Appropriate, Well Groomed Behavior: calm, cooperative Psychomotor activity: Normal Eye contact: Maintains Eye Contact Mood description: Anxious Affect description: congruent with mood Speech pattern: Rambling Speech volume: Soft/Quiet Thought process: Tangential Thought content: No Suicidal ideation, No Homicidal ideation, No Overt delusions Perceptual disturbances: No Auditory hallucinations, No Visual hallucinations Judgment: Fair Insight: Partial Results - Vital Signs Vital Signs: Temp Pulse Resp BP 98.3 F 56 14 118/69 04/07/17 21:00 04/07/17 21:00 04/07/17 21:00 04/07/17 21:00 Assessment and Plan (1) Altered mental status Current visit: No Status: Acute Plan: Continue hospitalization, Close observation, Suicide Precautions per unit protocol, Encourage participation in unit milieu, Group Therapy, Monitor sleep, Monitor appetite Risks, benefits, side effects, alternatives discussed w/pt: Yes Patient agreeable to treatment: Yes Qualifiers: Altered mental status type: unspecified Qualified Code(s): R41.82 - Altered mental status, unspecified
[2017-04-08] MEDS: Lisinopril 20 MG TABLET PO SCH (09:28)
[2017-04-08] MEDS: Bisoprolol/HCTZ 2.5/6.25 TABLET PO SCH (09:28)
[2017-04-08] MEDS: risperiDONE 0.25 MG TABLET PO SCH ×2 (09:29→21:06)
[2017-04-09] MEDS: Amoxicillin 500 MG CAPSULE PO SCH ×3 (06:31→21:20)
[2017-04-09] MEDS: Lisinopril 20 MG TABLET PO SCH (09:05)
[2017-04-09] MEDS: risperiDONE 0.25 MG TABLET PO SCH ×2 (09:05→21:20)
[2017-04-09] MEDS: Bisoprolol/HCTZ 2.5/6.25 TABLET PO SCH (09:05)
--- NOTE | 2017-04-09 16:26 | Psychiatry Progress Note ---
Date of Encounter: 04/09/17 Time of Encounter: 15:30 Subjective Interval history: Jesus seen this afternoon in the office. She was calm, cooperative and wellm related. Patient was noted to exhibit significant thought impair impairment in her thought process and was unbale to engage in a long comprehensive goal directed conversation. She is also noted with problems with recent and immidiate memory and was unable to give details of the event that lead to her hospitalization. She is compliant with her medication and denied any noted side effect. Patient also noted with intermiitent rapid and pressures speech. Patient denied any mood or psychotic symptoms. Unable to completet a full evaluation at present time due to significant impairments in thought process. Patient reported sleeping and eating well. We will continue with cuurent management at this time M. Review of Systems Constitutional: Denies: fever, chills, weakness, weight change Eyes: Denies: eye pain, vision change Ears, Nose, Throat: Denies: ear pain, throat pain, dental pain, hearing loss, congestion Cardiovascular: Denies: chest pain, palpitations, dyspnea on exertion Respiratory: Denies: cough, dyspnea, wheezes Gastrointestinal: Denies: abdominal pain, nausea, vomiting, diarrhea, constipation Musculoskeletal: Denies: joint swelling, joint pain Neurological: Denies: headache, weakness, numbness, memory loss Objective: Exam Patient orientation: Yes Person, Yes Time, Yes Place Level of alertness: Alert Patient appearance: Appropriate, Well Groomed Behavior: calm, cooperative, talkative Psychomotor activity: Normal Eye contact: Maintains Eye Contact Mood description: Euthymic/stable Affect description: congruent with mood, full range Speech pattern: Normal rate, Normal rhythm, Normal tone, Pressured, Repetitive, Difficulty finding words Speech volume: Normal Thought process: Circumstantial, Tangential, Thought Blocking Thought content: No Suicidal ideation, No Homicidal ideation, No Overt delusions Perceptual disturbances: No Auditory hallucinations, No Visual hallucinations Judgment: Fair Insight: Partial Results - Vital Signs Vital Signs: Temp Pulse Resp BP 98 F 63 18 135/76 04/09/17 09:00 04/09/17 09:00 04/09/17 09:00 04/09/17 09:00 Assessment and Plan (1) Bipolar 1 disorder, manic, moderate Current visit: No Status: Acute Consult Discharge Plan - Plan Referrals: NO,PCP [Primary Care Provider] -
[2017-04-10] MEDS: Amoxicillin 500 MG CAPSULE PO SCH ×3 (06:55→21:00)
[2017-04-10] MEDS: risperiDONE 0.25 MG TABLET PO SCH ×2 (08:54→21:00)
[2017-04-10] MEDS: Lisinopril 20 MG TABLET PO SCH (08:54)
[2017-04-10] MEDS: Bisoprolol/HCTZ 2.5/6.25 TABLET PO SCH (08:54)
--- NOTE | 2017-04-10 15:41 | Psychiatry Progress Note ---
Date of Encounter: 04/10/17 Time of Encounter: 15:30 Subjective Interval history: Patient seen in the office today. She reported feeling better than she was doing yesterday. Patient noted with some improvement in thought process. She remains intermittently tangential and circumstantial. She remains talkative but speech noted to be less rapid and pressured. collateral information from daughter stated patient's behavior has gone on now for some time off and on with no reason as to why it was happening. Daughter reports that her relationship with her mother is good and that the mother and fathers relationship are good. Her daughter reports that sometimes her mother does not even recognize herself in the mirror. She would like to set up a family meeting. Patient has been complaint with her medications and denied any noted side effects. She is sleeping and eating well. On review of symtoms she denied recents symptoms of AH/VH/HI/SI Review of Systems Constitutional: Denies: fever, chills, weakness, weight change Eyes: Denies: eye pain, vision change Ears, Nose, Throat: Denies: ear pain, throat pain, dental pain, hearing loss, congestion Cardiovascular: Denies: chest pain, palpitations, dyspnea on exertion Respiratory: Denies: cough, dyspnea, wheezes Gastrointestinal: Denies: abdominal pain, nausea, vomiting, diarrhea, constipation Musculoskeletal: Denies: joint swelling, joint pain Neurological: Denies: headache, weakness, numbness, memory loss Psychiatric: Reports: depression, confusion Objective: Exam Patient orientation: Yes Person, Yes Time, Yes Place Level of alertness: Alert Patient appearance: Appropriate, Well Groomed Behavior: calm, cooperative, talkative Psychomotor activity: Normal Eye contact: Maintains Eye Contact Mood description: Euthymic/stable Affect description: congruent with mood, full range, euphoric Speech pattern: Normal rate, Normal rhythm, Normal tone Speech volume: Normal Thought process: Circumstantial, Tangential, Thought Blocking, Slowed Thinking Thought content: No Suicidal ideation, No Homicidal ideation, No Overt delusions Perceptual disturbances: No Auditory hallucinations, No Visual hallucinations Judgment: Limited Insight: Partial Results - Vital Signs Vital Signs: Temp Pulse Resp BP 98.8 F 61 16 147/79 04/10/17 09:00 04/10/17 09:00 04/10/17 09:00 04/10/17 09:00 Assessment and Plan (1) Bipolar 1 disorder, manic, moderate Current visit: No Status: Acute (2) Bipolar disorder (manic depression) Current visit: Yes Status: Acute Consult Discharge Plan - Plan Referrals: NO,PCP [Primary Care Provider] -
[2017-04-11] MEDS: Amoxicillin 500 MG CAPSULE PO SCH ×3 (06:26→22:32)
[2017-04-11] MEDS: risperiDONE 0.25 MG TABLET PO SCH (09:05)
[2017-04-11] MEDS: Lisinopril 20 MG TABLET PO SCH (09:05)
[2017-04-11] MEDS: Bisoprolol/HCTZ 2.5/6.25 TABLET PO SCH (09:05)
--- NOTE | 2017-04-11 15:06 | Psychiatry Progress Note ---
Date of Encounter: 04/11/17 Time of Encounter: 15:00 Subjective Interval history: Patient seen in the office this afternoon. No reported incident overnight. Patient is reports feeling better. She is slowing responding to current regimen and continue to show improvement in her thought process and ability to engage in a comprehensive goal directed conversation. She has been compliant with her medications and denied any noted side effects. Patient was informed about daughter's request for a family meeting and was not receptive to idea asking for time to think about it. She denied symptoms of depression or psychosis including AH/VH/HI/SI. Patient is sleeping and eating well. She is interactive with staff and other client and has been participating in group sessions. Will increase Risperdal to 1mg at bedtime and monitor for side effects since patient is known to be highly sensitive to medications. Review of Systems Psychiatric: Reports: depression, confusion Results - Vital Signs Vital Signs: Temp Pulse Resp BP 98.1 F 67 16 115/71 04/11/17 09:00 04/11/17 09:00 04/11/17 09:00 04/11/17 09:00 Assessment and Plan (1) Bipolar 1 disorder, manic, moderate Current visit: No Status: Acute (2) Bipolar disorder (manic depression) Current visit: Yes Status: Acute Consult Discharge Plan - Plan Referrals: NO,PCP [Primary Care Provider] -
[2017-04-11] MEDS: risperiDONE 1 MG TABLET PO SCH (21:21)
[2017-04-12] MEDS: Amoxicillin 500 MG CAPSULE PO SCH ×3 (06:53→21:25)
[2017-04-12] MEDS: Bisoprolol/HCTZ 2.5/6.25 TABLET PO SCH (08:32)
[2017-04-12] MEDS: Lisinopril 20 MG TABLET PO SCH (08:33)
[2017-04-12] MEDS: risperiDONE 1 MG TABLET PO SCH ×2 (08:33→21:27)
--- NOTE | 2017-04-12 14:14 | Psychiatry Progress Note ---
Date of Encounter: 04/12/17 Time of Encounter: 13:45 Subjective Interval history: Patient seen thsi morning and evaluated by a multidisciplinary treatment team. There were no reported incident overnight. Patient is showing signficant improvement with increase in her dose of Riisperdal. She presented with a much clearer thought process, able to engage in a comprehensive conversation, speech close to normal and less pressured. She reported feeling significantly better and able to think clearer. Patient presented with a list of things to hopes to take up after her discharge to help occupy herself. She is compliant with her medications and denied any noted side effects. Physical exam negative for EPS. She is sleeping and eating well. She denied feeling denied and also denied other mood or psychotic symptoms including AH/VH/SI/HI. Review of Systems Constitutional: Denies: fever, chills, weakness, weight change Eyes: Denies: eye pain, vision change Ears, Nose, Throat: Denies: ear pain, throat pain, dental pain, hearing loss, congestion Cardiovascular: Denies: chest pain, palpitations, dyspnea on exertion Respiratory: Denies: cough, dyspnea, wheezes Gastrointestinal: Denies: abdominal pain, nausea, vomiting, diarrhea, constipation Musculoskeletal: Denies: joint swelling, joint pain Neurological: Denies: headache, weakness, numbness, memory loss Psychiatric: Reports: depression, confusion Objective: Exam Patient orientation: Yes Person, Yes Time, Yes Place Level of alertness: Alert Patient appearance: Appropriate, Well Groomed Behavior: calm, cooperative Psychomotor activity: Normal Eye contact: Maintains Eye Contact Mood description: Euthymic/stable Affect description: congruent with mood, full range Speech pattern: Normal rate, Normal rhythm, Normal tone Speech volume: Normal Thought process: Linear, Goal Oriented Thought content: No Suicidal ideation, No Homicidal ideation, No Overt delusions Perceptual disturbances: No Auditory hallucinations, No Visual hallucinations Judgment: Fair Insight: Partial Results - Vital Signs Vital Signs: Temp Pulse Resp BP 98.3 F 60 16 120/76 04/12/17 09:00 04/12/17 09:00 04/12/17 09:00 04/12/17 09:00 Assessment and Plan (1) Bipolar 1 disorder, manic, moderate Current visit: No Status: Acute (2) Bipolar disorder (manic depression) Current visit: Yes Status: Acute Consult Discharge Plan - Plan Referrals: NO,PCP [Primary Care Provider] -
[2017-04-13] MEDS: Amoxicillin 500 MG CAPSULE PO SCH ×3 (06:30→21:55)
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
[2017-04-13] MEDS: Bisoprolol/HCTZ 2.5/6.25 TABLET PO SCH (09:16)
[2017-04-13] MEDS: risperiDONE 1 MG TABLET PO SCH ×2 (09:16→21:21)
[2017-04-13] MEDS: Lisinopril 20 MG TABLET PO SCH (09:17)
[2017-04-14] MEDS: Amoxicillin 500 MG CAPSULE PO SCH ×3 (06:27→22:11)
[2017-04-14] MEDS: risperiDONE 1 MG TABLET PO SCH ×2 (09:37→22:10)
[2017-04-14] MEDS: Lisinopril 20 MG TABLET PO SCH (09:37)
[2017-04-14] MEDS: Bisoprolol/HCTZ 2.5/6.25 TABLET PO SCH (09:37)
--- NOTE | 2017-04-14 12:47 | Psychiatry Progress Note ---
Date of Encounter: 04/14/17 Time of Encounter: 12:17 Subjective Interval history: Patient seen and interviewed. Continued to remain extremely scattered and distracted. Unable to hold a meaningful long conversation. Patient will start talking about a topic and then will become extremely confused and forgetful and unable to finish that conversation.. She is also loose and tangential. Sleep and appetite better. Behavior is more controlled. Appears anxious nervous and fearful. Does not have a good disposition or safety plan. Tolerating medications fairly well. Review of Systems Psychiatric: Reports: depression, anxiety, confusion, difficulty concentrating Objective: Exam Patient orientation: Yes Person, Yes Time, Yes Place Level of alertness: Alert Patient appearance: Appropriate, Well Groomed Behavior: anxious, fearful Psychomotor activity: Normal Eye contact: Maintains Eye Contact Mood description: Anxious Affect description: anxious Speech pattern: Excessive Speech volume: Normal Thought process: Loose Associations, Tangential, Thought Blocking Thought content: Yes Poverty of Content Perceptual disturbances: No Auditory hallucinations, No Visual hallucinations Judgment: Limited Insight: Minimal Results - Vital Signs Vital Signs: Temp Pulse Resp BP 99.4 F 71 16 125/78 04/14/17 08:30 04/14/17 08:30 04/14/17 08:30 04/14/17 08:30 Assessment and Plan (1) Bipolar 1 disorder, manic, moderate Current visit: No Status: Acute Plan: Continue hospitalization, Close observation, Suicide Precautions per unit protocol, Encourage participation in unit milieu, Group Therapy, Monitor sleep, Monitor appetite Additional Plan: Continue with current medication Risks, benefits, side effects, alternatives discussed w/pt: Yes Patient agreeable to treatment: Yes Consult Discharge Plan - Plan Referrals: [facility] [Other] - 05/01/17 11:30 am (You will see Dr. Maryanne Lima for outpatient psychiatric assessment and medication management services on 05/01/2017 at 11:30am.) [facility] Rodriguez [Other] - 04/18/17 11:00 am (You will see Michael Stauffer for mental health counseling on 04/18/2017 at 11:00am.)
[2017-04-15] MEDS: Amoxicillin 500 MG CAPSULE PO SCH ×3 (06:17→21:51)
[2017-04-15] MEDS: Lisinopril 20 MG TABLET PO SCH (09:40)
[2017-04-15] MEDS: risperiDONE 1 MG TABLET PO SCH ×2 (09:40→21:51)
[2017-04-15] MEDS: Bisoprolol/HCTZ 2.5/6.25 TABLET PO SCH (09:40)
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
[2017-04-16] MEDS: Amoxicillin 500 MG CAPSULE PO SCH ×3 (06:19→21:21)
[2017-04-16] MEDS: risperiDONE 1 MG TABLET PO SCH ×2 (09:05→21:21)
[2017-04-16] MEDS: Lisinopril 20 MG TABLET PO SCH (09:05)
[2017-04-16] MEDS: Bisoprolol/HCTZ 2.5/6.25 TABLET PO SCH (09:06)
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
[2017-04-17] MEDS: Amoxicillin 500 MG CAPSULE PO SCH ×3 (06:30→22:00)
[2017-04-17] MEDS: Lisinopril 20 MG TABLET PO SCH (09:53)
[2017-04-17] MEDS: Bisoprolol/HCTZ 2.5/6.25 TABLET PO SCH (09:53)
[2017-04-17] MEDS: risperiDONE 1 MG TABLET PO SCH ×2 (09:53→21:33)
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
[2017-04-18] MEDS: Amoxicillin 500 MG CAPSULE PO SCH ×3 (05:53→21:56)
[2017-04-18] MEDS: Bisoprolol/HCTZ 2.5/6.25 TABLET PO SCH (09:21)
[2017-04-18] MEDS: Lisinopril 20 MG TABLET PO SCH (09:21)
[2017-04-18] MEDS: risperiDONE 1 MG TABLET PO SCH ×2 (09:21→21:56)
--- NOTE | 2017-04-18 14:37 | Psychiatry Progress Note ---
Date of Encounter: 04/18/17 Time of Encounter: 14:20 Subjective Interval history: Patient seen today , very anxious , last night had panic attacks and stuttering as per staff. she is still having thought blocking, easily distracted and anxious. no suicidal ideation patient will not be able to discharge to her friend as planned , because her friend is taking care of her mother and cannot take care of her, she also cannot go to her children. awaiting for neuropsych testing result. Review of Systems Psychiatric: Reports: depression, anxiety, confusion, difficulty concentrating Objective: Exam Patient orientation: Yes Time, Yes Place Level of alertness: Alert Patient appearance: Appropriate Behavior: nervous, anxious Psychomotor activity: Normal Eye contact: Minimal Contact Mood description: Anxious Affect description: anxious Speech pattern: Slowed, Stuttering Speech volume: Soft/Quiet Thought process: Thought Blocking, Perseveration Thought content: Yes Preoccupation Judgment: Fair Insight: Partial Results - Vital Signs Vital Signs: Temp Pulse Resp BP 97.8 F 56 18 142/80 04/18/17 09:00 04/18/17 09:00 04/18/17 09:00 04/18/17 09:00 Assessment and Plan (1) Bipolar disorder (manic depression) Current visit: Yes Status: Acute Risks, benefits, side effects, alternatives discussed w/pt: Yes Patient agreeable to treatment: Yes Qualifiers: Current bipolar episode type: manic Current episode severity: severe Psychotic features: with psychotic features (2) PTSD (post-traumatic stress disorder) Current visit: Yes Status: Chronic Risks, benefits, side effects, alternatives discussed w/pt: Yes Patient agreeable to treatment: Yes Consult Discharge Plan - Plan Referrals: [place] [Other] - 05/01/17 11:30 am (You will see Dr. Maryanne Lima for outpatient psychiatric assessment and medication management services on 05/01/2017 at 11:30am.) Eh Rodriguez [Other] - 04/26/17 11:00 am (You will see Michael Stauffer for mental health counseling on [facility], 04/26/2017, at 11:00am.)
[2017-04-19] MEDS: Amoxicillin 500 MG CAPSULE PO SCH (05:57)
[2017-04-19] MEDS: Lisinopril 20 MG TABLET PO SCH (08:45)
[2017-04-19] MEDS: Bisoprolol/HCTZ 2.5/6.25 TABLET PO SCH (08:45)
[2017-04-19] MEDS: risperiDONE 1 MG TABLET PO SCH ×2 (08:46→21:36)
--- NOTE | 2017-04-19 13:01 | Psychiatry Progress Note ---
Date of Encounter: 04/19/17 Time of Encounter: 12:30 Subjective Interval history: Patient seen today with social work faculty member Miss Villalpando to discuss her discharge planning and after care. i reviewed patients neuro psych testing and MRI and neurologists consult. today on examination she is alert but difficulty with speech and finding words, she is looking anxious, admits frustrated and has diff. with recent memory and confabulation. she is esily distracted and discussed with her about discharge , not driving till seen by neurologist and out patient psychiatrist. she will need supervision because of cognitive deficit. she is not suicidal or danger to others at present. Review of Systems Psychiatric: Reports: depression, anxiety, confusion, memory loss, difficulty concentrating Objective: Exam Level of alertness: Alert Patient appearance: Appropriate Behavior: nervous, anxious Psychomotor activity: Slowed Eye contact: Minimal Contact Mood description: Anxious Affect description: congruent with mood Speech pattern: Aphasic Speech volume: Soft/Quiet Thought process: Loose Associations, Tangential Thought content: Yes Preoccupation Judgment: Limited Insight: Partial Results - Vital Signs Vital Signs: Temp Pulse Resp BP 98.6 F 57 16 126/68 04/19/17 08:54 04/19/17 08:54 04/19/17 08:54 04/19/17 08:54 Assessment and Plan (1) Bipolar disorder (manic depression) Current visit: Yes Status: Acute Risks, benefits, side effects, alternatives discussed w/pt: Yes Patient agreeable to treatment: Yes Qualifiers: Current bipolar episode type: manic Current episode severity: severe Psychotic features: with psychotic features (2) PTSD (post-traumatic stress disorder) Current visit: Yes Status: Chronic Risks, benefits, side effects, alternatives discussed w/pt: Yes Patient agreeable to treatment: Yes (3) Cognitive and behavioral changes Current visit: Yes Status: Acute Plan: Close observation, Family/Supportive other meeting Risks, benefits, side effects, alternatives discussed w/pt: Yes Patient agreeable to treatment : Yes (4) Altered mental status Current visit: No Status: Acute Risks, benefits, side effects, alternatives discussed w/pt: Yes Patient agreeable to treatment: Yes Qualifiers: Altered mental status type: unspecified Qualified Code(s): R41.82 - Altered mental status, unspecified Consult Discharge Plan - Plan Referrals: [facility] [Other] - 05/01/17 11:30 am (You will see Dr. Maryanne Lima for outpatient psychiatric assessment and medication management services on 05/01/2017 at 11:30am.) Eh Rodriguez [Other] - 04/26/17 11:00 am (You will see Michael Stauffer for mental health counseling on [facility], 04/26/2017, at 11:00am.)
[2017-04-20] MEDS: Lisinopril 20 MG TABLET PO SCH (09:05)
[2017-04-20] MEDS: risperiDONE 1 MG TABLET PO SCH (09:05)
[2017-04-20] MEDS: Bisoprolol/HCTZ 2.5/6.25 TABLET PO SCH (09:05)
[2017-04-20 09:09] VITALS: BP 119/72
--- NOTE | 2017-04-20 11:44 | Discharge Summary ---
Date of Encounter: 04/20/17 Time of Encounter: 11:10 Diagnosis - Discharge Diagnosis (1) Bipolar disorder (manic depression) Status: Acute Qualifiers: Current bipolar episode type: manic Psychotic features: without psychotic features Qualified Code(s): F31.13 - Bipolar disorder, current episode manic without psychotic features, severe (2) PTSD (post-traumatic stress disorder) Status: Chronic (3) Cognitive and behavioral changes Status: Chronic (4) Altered mental status Status: Acute Qualifiers: Altered mental status type: unspecified Qualified Code(s): R41.82 - Altered mental status, unspecified Medications - Discharge Medications Bisoprolol/HCTZ 2.5/6.25 [Ziac 2.5/6.25] 1 tab PO DAILY 04/03/17 [History] Buspirone HCl [Buspar] 30 mg PO BID 04/03/17 [History] Quinapril HCl [Accupril] 20 mg PO DAILY 04/03/17 [History] Sertraline [Zoloft] 200 mg PO DAILY 04/03/17 [History] clonazePAM [Klonopin] 0.5 mg PO BID PRN 04/03/17 [History] Acetaminophen [Tylenol] 650 mg PO Q6HR PRN tab 04/06/17 [Rx] Amoxicillin [Amoxil] 500 mg PO Q8H 3 Days 04/06/17 [Rx] Allergies No Known Allergies Allergy (Verified 04/03/17 15:08) Provider Date of admission: 04/06/17 15:03 Primary care physician: PCP NONE Assessment and Plan - Patient/Caregiver Discharge Instructions Activity: resume usual activities as tolerated Diet: regular diet - Follow up Plan Follow up with: [place] [Other] - 05/01/17 11:30 am (You will see Dr. Maryanne Lima for outpatient psychiatric assessment and medication management services on 05/01/2017 at 11:30am.) Eh Rodriguez [Other] - 04/26/17 11:00 am (You will see Michael Stauffer for mental health counseling on , 04/26/2017, at 11:00am.) Peter Regalado DO [Partnered Physician] - 06/25/17 2:45 pm (The above appointment is with Dr. Regalado, neurologist. Please bring photo ID and insurance card. This is the first available new patient appointment. You may contact the office regularly to check for cancellations that may allow you to be seen sooner.) Overall status at discharge: Stable Disposition: Home, Self-Care Hospital Course Hospital course: Ms. Marquez is a 56 year old female admitted to medical floor for altered mental stats, had neurology consult and MRI , results reviewed , pt then transfered to psychiatric floor. she has h/o depression , PTSD and dx with cognitive impairment, she also had neuropsych. testing done in 11/09 which showed significant cognitive impairement. she during course of her stay in hospital had improved depression , sleep and moods. her cognitive remained same, memory recent getting worse, she is confabulating and has speech aphasia. she is not danger to self/others, but she can put herself in secondary to her cognitive decline, but it is going n since 11/09 or earlier. She has been compliant with meds and denies side effects from medications, she attended groups and has been pleasant and cooperative. she will need to follow up with Neurologist and her psychiatrist as out patient. she will need supervision . she needs to be R/O Dementia. as per patient her mother had Dementia. today before discharge will have family meeting , Patient will be going home with her family. discharge medications given. - Time Spent with Patient Total time spent providing and/or coordinating discharge services: Less than 30 minutes Quality - Multiple Antipsychotics Patient discharged on 2 or more antipsychotic medications: No Procedures - Procedures Procedures: Medication Management, Crisis Stabilization, Supportive Therapy, Group Therapy Mental Status Exam - Mental Status Exam Level of alertness: Alert Patient appearance: Appropriate Behavior: cooperative Psychomotor activity: Slowed Eye contact: Maintains Eye Contact Mood description: Euthymic/stable Affect description: constricted Speech pattern: Slowed Speech Volume: Normal Thought process: Slowed Thinking Thought Content: Yes Intact Judgment: Fair Insight: Partial
== END 2017-04-20 14:10 | disposition home or self-care (01) | DRG 885 ==
LOC: 1ANU 15:03 → SUATTDRO 15:03 → 1ANU 04-09 18:59
PROVIDERS: ADMIT Psychiatry & Neurology Psychiatry; ATTEND Psychiatry & Neurology Psychiatry